=== PATIENT | male | born 1990 | race Hispanic/Latino ===

== ENCOUNTER 2020-03-29 05:00 | Emergency (ER) | payer SELFPAY ==
[2020-03-29] MEDS ORDERED: IBUPROFEN 600 MG TABLET ONE (05:39)
== END 2020-03-29 05:51 | disposition home or self-care (01) ==
LOC: EDH 05:00
DX: S63.613A Unspecified sprain of left middle finger, initial encounter (principal); S60.042A Contusion of left ring finger without damage to nail, initial encounter; X58.XXXA Exposure to other specified factors, initial encounter; Y93.89 Activity, other specified; Y92.89 Other specified places as the place of occurrence of the external cause; Y99.8 Other external cause status
CPT/HCPCS: 29130; 73130